=== PATIENT | male | born 1955 | race African-American/Black ===

== ENCOUNTER 2016-10-03 18:40 | Emergency (ER) | payer OTHER ==
[~2016-10-03] VITALS: Ht 172.7 cm; Wt 90.7 kg
[2016-10-03] MEDS ORDERED: DIPHTH,PERTUSS(ACELL),TET TOX 0.5 ML DISP.SYRIN. VAX IM ONE (19:15)
[2016-10-03] MEDS ORDERED: LIDOCAINE/EPI/TETRACAINE TOPICAL GEL 3 ML. TP ONE (19:15)
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
[2016-10-03 21:45] VITALS: BP 116/79
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
== END 2016-10-03 22:00 | disposition home or self-care (01) ==
LOC: EEVIPCON 18:40 → ER 18:40
DX: S01.01XA Laceration without foreign body of scalp, initial encounter (principal); R07.81 Pleurodynia; E11.39 Type 2 diabetes mellitus with other diabetic ophthalmic complication; H40.9 Unspecified glaucoma; I10 Essential (primary) hypertension; B19.20 Unspecified viral hepatitis C without hepatic coma; Z21 Asymptomatic human immunodeficiency virus [HIV] infection status; W01.0XXA Fall on same level from slipping, tripping and stumbling without subsequent striking against object, initial encounter; Y93.89 Activity, other specified; Y99.8 Other external cause status; Y92.89 Other specified places as the place of occurrence of the external cause
CPT/HCPCS: 12002; 70450; 71101; 72125; 90471; 90715; 99284-25